=== PATIENT | female | born 1955 | race Caucasian/White ===

== ENCOUNTER 2019-04-13 06:17 | Observation (INO) ==
[2019-04-13] MEDS ORDERED: CeFAZolin Syr 2,000MG/20 ML 2,000 MG/20 ML SYRINGE IVPB ONE (06:46)
[2019-04-13] MEDS ORDERED: Ringers Solution, Lactated 1,000 ML IVC SCH (07:00)
[2019-04-13] MEDS ORDERED: Lidocaine -MPF 1% 2 ML AMPUL ONE (07:04)
[2019-04-13] MEDS ORDERED: Ondansetron 4 MG/2 ML VIAL IVP ONE (07:21)
[2019-04-13] MEDS ORDERED: Acetaminophen IV 1,000 MG/100 ML INFUS..BTL IVPB ONE (07:21)
[2019-04-13] MEDS ORDERED: *HR* Promethazine 25 MG/ML VIAL IVP PRN (07:21)
[2019-04-13] MEDS ORDERED: Famotidine 20 MG/2 ML VIAL IVP ONE (07:21)
[2019-04-13] MEDS ORDERED: *HR* OxyCODONE Immed Rel 5 MG TABLET PO PRN (07:21)
[2019-04-13] MEDS ORDERED: *HR* Labetalol 20 MG/4 ML SYRINGE IVP PRN (07:21)
[2019-04-13] MEDS ORDERED: Gabapentin 300 MG CAPSULE PO ONE (07:21)
[2019-04-13] MEDS ORDERED: *HR* HYDROcodone/Acet 5/325 mg TABLET PO ONE (07:41)
[2019-04-13] MEDS ORDERED: Fluconazole 200 MG/100 ML 200 MG/100 ML BAG IVPB ONE (08:02)
[2019-04-13] MEDS ORDERED: *HR* FentaNYL (PF) 100 MCG/2 ML VIAL ONE (08:05)
[2019-04-13] MEDS ORDERED: Lidocaine HCL 4 ML Topical Solution (Laryng-O-Jet Kit Sterile Pak) TP ONE (08:05)
[2019-04-13] MEDS ORDERED: *HR* Midazolam HCl 2 MG/2 ML VIAL ONE (08:05)
[2019-04-13] MEDS ORDERED: Ondansetron 4 MG/2 ML VIAL ONE (08:05)
[2019-04-13] MEDS ORDERED: *HR* Rocuronium Bromide 50 MG/5 ML VIAL ONE (08:05)
[2019-04-13] MEDS ORDERED: *HR* Succinylcholine 200 MG/10 ML VIAL IVP ONE (08:05)
[2019-04-13] MEDS ORDERED: *HR* Propofol 200 MG/20 ML VIAL IVP ONE (08:05)
[2019-04-13] MEDS ORDERED: Dexamethasone 4 MG/ML VIAL ONE (08:05)
[2019-04-13] MEDS ORDERED: Ketorolac 30 MG/ML VIAL ONE (08:07)
[2019-04-13] MEDS ORDERED: EPHEDrine 50 MG/ML VIAL ONE (08:12)
[2019-04-13] MEDS ORDERED: Neostigmine Methylsulfate 3 MG/3 ML SYRINGE ONE (08:57)
[2019-04-13] MEDS: *HR* HYDROmorphone (PF) 1 MG/ML SYRINGE IVP PRN ×3 (09:35→10:03)
[2019-04-13] MEDS ORDERED: Albuterol 2.5 MG/3 ML NEBULIZER IH ONE (11:30)
[2019-04-13] MEDS ORDERED: Naloxone 0.4 MG/ML INJ IVP ONE (12:33)
[2019-04-13] MEDS ORDERED: Naloxone 0.4 MG/ML INJ IVP PRN ×2 (13:39→14:58)
[2019-04-13] MEDS ORDERED: Ondansetron 4 MG/2 ML VIAL IVP PRN ×2 (13:39→14:58)
[2019-04-13] MEDS ORDERED: *HR* HYDROcodone/Acet 5/325 mg TABLET PO PRN ×2 (13:39→14:58)
[2019-04-13] MEDS ORDERED: Ibuprofen 600 MG TABLET PO PRN ×2 (13:39→14:58)
[2019-04-13] MEDS ORDERED: *HR* Metoprolol 5 MG/5 ML VIAL IVP PRN ×2 (13:39→14:58)
[2019-04-13] MEDS ORDERED: Dextrose Gel 15 GM/37.5 ML TUBE PO PRN ×2 (14:58)
[2019-04-13] MEDS ORDERED: D5% in Water 1,000 ML IVC PRN (14:58)
[2019-04-13] MEDS ORDERED: *HR* Dextrose 50 % in Water (Syg) 50 ML SYRINGE IVP PRN (14:58)
[2019-04-13] MEDS ORDERED: Ipratropium/Albuterol Neb 3 ML IH SCH (16:00)
[2019-04-13] MEDS: Insulin LISPRO 300 UNITS/3 ML VIAL SQ SCH (17:06)
[2019-04-13] MEDS: *HR* Metformin 500 MG TABLET PO SCH (17:06)
[2019-04-13] MEDS: Ipratropium/Albuterol Neb 3 ML IH SCH ×2 (19:50→21:39)
[2019-04-13 21:00] LABS: Basophils % 0.1 %; Hematocrit 38.4 % (35.3-44.9); Hemoglobin 12.5 g/dL (11.5-15.4); Immature Granulocytes % 0.3 % (0-4); Lymphocytes # 1.2 K/mcL (0.6-4.6); Mean Corpuscular HGB Conc 32.6 g/dL (31.6-35.5); Mean Corpuscular Hemoglobin 27.6 pg (28.0-33.3); Mean Corpuscular Volume 84.8 fL (83.0-100.0); Mean Platelet Volume 9.7 fL (9.4-12.4); Monocytes # 0.5 K/mcL (0.0-1.3); Monocytes % 5.3 %; Neutrophils # 7.1 K/mcL (1.6-8.9); Platelet Count 242 K/mcL (140-400); Red Blood Count 4.53 M/mcL (3.82-4.97); Red Cell Distribution Width 14.2 % (11.5-14.5); Segmented Neutrophils % 80.3 %; White Blood Count 8.9 K/mcL (4.3-11.1)
[2019-04-13 21:18] LABS: BUN/Creatinine Ratio 21 (6-26); Blood Urea Nitrogen 11 mg/dL (8-23); Calcium 9.4 mg/dL (8.6-10.3); Carbon Dioxide 27 mEq/L (23-29); Chloride 102 mEq/L (98-107); Glucose 151 mg/dL (70-105); Osmolality,Calculated 290 (280-300); Potassium 4.1 mEq/L (3.5-5.1); Sodium 139 mEq/L (136-145); eGFR For African Americans > 60 (> 60); eGFR For Non-African Americans > 60 (> 60)
[2019-04-14] MEDS: Ipratropium/Albuterol Neb 3 ML IH SCH ×2 (03:48→11:22)
[2019-04-14 07:17] VITALS: BP 103/62
[2019-04-14] MEDS: Insulin LISPRO 300 UNITS/3 ML VIAL SQ SCH (08:00)
[2019-04-14] MEDS: *HR* Metformin 500 MG TABLET PO SCH (08:08)
[2019-04-14] MEDS ORDERED: FLU Vac QV 19-20 (6Month+)/PF 0.5 ML SYRINGE IM ONE (08:50)
[2019-04-14] MEDS ORDERED: Fluconazole 100 MG TABLET PO SCH (09:00)
== END 2019-04-14 10:33 | disposition home or self-care (01) ==
LOC: 3ANU 06:17 → SAMDAY 06:17 → 3ANU 14:47 → SAMDAY 14:47
PROVIDERS: ADMIT Surgery; ATTEND Surgery